=== PATIENT | female | born 1940 | race Caucasian/White ===

== ENCOUNTER → 2017-01-13 | Outpatient (CLI) | payer MEDICARE, BC ==
[~2017-01-13] MED LIST: ALBUTEROL MININEB NEB; ATARAX PO; ATORVASTATIN CA10 MG PO; B-COMPLEX1 TAB; CELEXA PO; DESYREL150 M1 PO; FELDENE20 MG PO; FOLIC ACID1 MG PO; GABAPENTIN800 MG PO; HYDROCODONE-APA1 T54 PO; METHOTREXATE2.5 MG PO; NEURONTIN PO; NEURONTIN600 MG PO; NORTRIPTYLINE H75 MG PO; OMEPRAZOLE40 M1 PO; OXYCODONE HCL5 MG PO; PAMELOR25 M1 PO; PAMELOR25 M2 PO; PAMELOR75 MG PO; PATIENT'S PHARMACY; PERCOCET 10/3251 TAB PO; PERCOCET 7.5/321 TAB PO; PREDNISONE PO; PREDNISONE5 M1 PO; PROTONIX PO; RANITIDINE HCL150 M1; REGLAN5 MG PO; SERTRALINE HCL100 MG PO; TRAZODONE HCL150 MG PO; TRAZODONE PO; VICODIN 5/500 T1 TAB PO; VIT B12 INJ; VIT D PO; VITAMIN B SUBQ; VITAMIN D5000 UNIT PO; VITAMIN D50000 UNIT PO; ZANTAC150 MG PO; ZOLOFT PO
--- NOTE | ~2017-01-13 | CR63 ---
[facility] A Service of [facility] RADIOLOGY TEXT RESULTS PATIENT: SIERRA OLIVEROS LOCATION: [facility] : 36 UNIT #: [id number] AGE: [address]: Qasim Wild MD SEX: F ORDER DR: [id number] [address] [address] [id number] O MR#: [id number] Acc #: [id number] NAME: SIERRA OLIVEROS : 1940 SEX: F STUDY DATE/TIME: 01/13/2017 11:12 UNIT: [facility] ROOM: STUDY DESCRIPTION: CR Chest 2 View Attending Physician: Qasim Wild M.D. Referring Physician: Qasim Wild M.D. Ordering Physician: Qasim Wild M.D. Primary Care Physician: Qasim Wild M.D. MEDICAL IMAGING REPORT This report is preliminary unless electronic signature is present. EXAM PA lateral chest Date: 01/13/2017 HISTORY COPD. A 60-year smoking history. No current chest complaints. COMPARISON PA lateral chest radiograph 01/18/2014. FINDINGS Lungs are hyperinflated emphysematous. There is some band-like scarring or atelectasis in the bilateral lower lobes, right greater left. Trace right pleural effusion is present. The spinal stimulator lead projects over the upper thoracic region. Degenerative endplate spurring and endplate sclerosis is demonstrated in the mid thoracic spine. Osteopenia. Normal heart size. IMPRESSION 1. Band-like scarring or atelectasis in the bilateral lower lobes. 2. Trace right pleural effusion. 3. Emphysema. Dictated by... Otilia Conrad M.D. THIS IS AN ELECTRONICALLY VERIFIED REPORT Otilia Conrad M.D. at 01/16/2017 8:52 AM [facility]/edilberto [facility] A Service of [facility] RADIOLOGY TEXT RESULTS PATIENT: SIERRA OLIVEROS LOCATION: [facility] : 38 UNIT #: [id number] AGE: [address]: Qasim Wild MD SEX: F ORDER DR: TD: 01/14/2017 02:22 JOB #: [id number] MEDICAL IMAGING REPORT Page 1 of 1
--- NOTE | ~2017-01-13 | MY11 ---
[facility] A Service [facility] RADIOLOGY TEXT RESULTS PATIENT: SIERRA OLIVEROS LOCATION: [facility] : 36 UNIT #: [id number] AGE: [address]: Qasim Wild MD SEX: F ORDER DR: [id number] [address] [address] [id number] O MR#: [id number] Acc #: [id number] NAME: SIERRA OLIVEROS : 1940 SEX: F STUDY DATE/TIME: 01/13/2017 12:11 UNIT: [facility] ROOM: STUDY DESCRIPTION: MY Mammogram Screening Dig Demetrius Attending Physician: Qasim Wild M.D. Referring Physician: Qasim Wild M.D. Ordering Physician: Qasim Wild M.D. Primary Care Physician: Qasim Wild M.D. MEDICAL IMAGING REPORT This report is preliminary unless electronic signature is present. EXAM Bilateral Digital Screening Mammogram with CAD INDICATION Breast cancer screening. 76-year-old asymptomatic female. No personal or family history of breast cancer. COMPARISON March 24, 2014; September 15, 2013; July 20, 2010 and December 23, 2008. FINDINGS There are scattered fibroglandular tissues. No suspicious findings are present. IMPRESSION No mammographic evidence of malignancy. Annual screening mammography and clinical breast exam are recommended. A result letter will be sent to the patient. Patients over the age of 40 are entered into a reminder system with target due date for the next mammogram. BIRADS: 1 Negative Dictated by... Jesus Serrano M.D. THIS IS AN ELECTRONICALLY VERIFIED REPORT Jesus Serrano M.D. at 01/16/2017 7:36 PM [facility]/matthew [facility] A Service [facility] RADIOLOGY TEXT RESULTS PATIENT: SIERRA OLIVEROS LOCATION: [facility] : 36 UNIT #: [id number] AGE: [address]: Qasim Wild MD SEX: F ORDER DR: TD: 01/13/2017 22:18 JOB #: [id number] MEDICAL IMAGING REPORT Page 1 of 1
== END | disposition home or self-care (01) ==
LOC: SMAM 10:58
DX: Z12.31 Encounter for screening mammogram for malignant neoplasm of breast (principal); J44.9 Chronic obstructive pulmonary disease, unspecified
CPT/HCPCS: 71020; G0202